=== PATIENT | female | born 2000 | race Two or more races ===

== ENCOUNTER 2022-05-31 10:57 | Observation (INO) | payer MEDICAID ==
[~2022-05-31] VITALS: Ht 163.8 cm; Wt 108.9 kg
[2022-05-31 13:54] LABS: Basophils # (auto) 0 10 ^3/uL (0-0.2); Basophils % (auto) 0.3 % (0.0-2.0); Eosinophils # (auto) 0.1 10 ^3/uL (0-0.8); Eosinophils % (auto) 1.4 % (0.0-7.0); Hematocrit 32.4 % (36.0-46.0); Hemoglobin 10.8 g/dL (12.2-16.2); Lymphocytes # (auto) 1.6 10 ^3/uL (0.4-5.4); Lymphocytes % (auto) 24.1 % (10.0-50.0); Mean Corpuscular Hemoglobin 27.7 pg (28.0-32.0); Mean Corpuscular Hgb Conc. 33.3 g/dL (32.0-36.0); Mean Corpuscular Volume 83.2 fL (80.0-100.0); Monocytes # (auto) 0.4 10 ^3/uL (0-1.3); Monocytes % (auto) 5.8 % (0.0-12.0); Neutrophils # (auto) 4.6 10 ^3/uL (1.6-8.6); Neutrophils % (auto) 68.4 % (37.0-80.0); Red Blood Cells 3.89 10^6/uL (4.0-5.20); Red Cell Distribution Width 14.4 % (11.8-14.3); White Blood Cell 6.7 10^3/uL (4.4-10.8)
[2022-05-31 14:07] LABS: INR 0.93 (0.9-1.15); Partial Thromboplastin Time 32.4 sec (24.6-33.4)
[2022-05-31 14:30] LABS: Albumin 2.4 g/dL (3.4-5.0); BUN/Creatinine Ratio 11.8; Bilirubin, Total 0.2 mg/dL (0.2-1.0); Calcium 8.1 mg/dL (8.5-10.1); Total Protein 6.6 g/dL (6.4-8.2); Uric Acid 3.7 mg/dL (2.6-6.0)
[2022-06-02 08:07] LABS: RPR Non Reactive (Non Reactive)
[2022-06-02 10:06] LABS: Rubella Antibodies, IgG 0.96 index (Immune >0.99)
== END 2022-05-31 14:40 | disposition home or self-care (01) ==
LOC: LDRP 10:57
PROVIDERS: ADMIT Obstetrics & Gynecology; ATTEND Obstetrics & Gynecology
DX: O26.893 Other specified pregnancy related conditions, third trimester (principal); R10.9 Unspecified abdominal pain; R10.2 Pelvic and perineal pain; N89.8 Other specified noninflammatory disorders of vagina; O26.853 Spotting complicating pregnancy, third trimester; Z3A.37 37 weeks gestation of pregnancy; Z79.899 Other long term (current) drug therapy
CPT/HCPCS: 36415; 59025; 76805; 80053; 81002; 84550; 85025; 85610; 85730; 86592; 86703; 86762; 86850; 86900; 86901; 87340; 94760; G0378

== ENCOUNTER 2022-06-21 11:55 | Observation (INO) | payer MEDICAID | END 2022-06-21 15:20 | disposition home or self-care (01) | LOC: LDRP 11:55 | PROVIDERS: ADMIT Obstetrics & Gynecology; ATTEND Obstetrics & Gynecology | DX: O62.9 Abnormality of forces of labor, unspecified (principal); Z3A.40 40 weeks gestation of pregnancy | CPT/HCPCS: 59025; 81002; 94760; G0378 ==

== ENCOUNTER 2022-06-23 21:49 | Inpatient (IN) | payer MEDICAID ==
[~2022-06-23] VITALS: Ht 166.4 cm; Wt 108.9 kg
[2022-06-24 00:53] LABS: Eosinophils # (auto) 0.1 10 ^3/uL (0-0.8); Monocytes # (auto) 0.6 10 ^3/uL (0-1.3); Monocytes % (auto) 4.7 % (0.0-12.0); Neutrophils # (auto) 8.9 10 ^3/uL (1.6-8.6)
[2022-06-24 00:54] LABS: Basophils # (auto) 0 10 ^3/uL (0-0.2); Basophils % (auto) 0.2 % (0.0-2.0); Eosinophils % (auto) 0.5 % (0.0-7.0); Hematocrit 33.3 % (36.0-46.0); Hemoglobin 10.8 g/dL (12.2-16.2); Lymphocytes # (auto) 2.6 10 ^3/uL (0.4-5.4); Lymphocytes % (auto) 21.2 % (10.0-50.0); Mean Corpuscular Hemoglobin 26.5 pg (28.0-32.0); Mean Corpuscular Hgb Conc. 32.4 g/dL (32.0-36.0); Mean Corpuscular Volume 81.7 fL (80.0-100.0); Neutrophils % (auto) 73.4 % (37.0-80.0); Red Blood Cells 4.07 10^6/uL (4.0-5.20); White Blood Cell 12.1 10^3/uL (4.4-10.8)
[2022-06-24 00:59] LABS: Urine Bacteria NONE SEEN /hpf (None Seen); Urine Blood 2+ /uL (Negative); Urine WBC 38 /hpf (0 - 5)
[2022-06-24 01:00] LABS: INR 0.91 (0.9-1.15); Partial Thromboplastin Time 30.2 sec (24.6-33.4)
[2022-06-24 01:02] LABS: Albumin 2.5 g/dL (3.4-5.0); BUN/Creatinine Ratio 12.9; Calcium 8.6 mg/dL (8.5-10.1); Potassium 3.9 mmol/L (3.5-5.1)
[2022-06-24 01:04] LABS: Amphetamine Screen, Urine NEGATIVE (NEGATIVE); Barbiturate Scree,Urine NEGATIVE (NEGATIVE); Benzodiazephine Screen, Urine NEGATIVE (NEGATIVE); Cannabinoid Screen, Urine NEGATIVE (NEGATIVE); Cocaine Screen, Urine NEGATIVE (NEGATIVE); Opiate Scree,Urine NEGATIVE (NEGATIVE); Phencyclidine Screen, Urine NEGATIVE (NEGATIVE)
[2022-06-24 01:05] LABS: Protein, Urine 12.3 mg/dL (0.0-11.9)
[2022-06-24 01:05] LABS: Bilirubin, Total 0.2 mg/dL (0.2-1.0); Total Protein 6.3 g/dL (6.4-8.2)
[2022-06-24 01:59] LABS: Uric Acid 3.6 mg/dL (2.6-6.0)
[2022-06-24] MEDS ORDERED: PROMETHAZINE HCL 25 MG/ML 1ML IV PRN (03:15)
[2022-06-24] MEDS ORDERED: WITCH HAZEL-GLYCERIN PAD TOP PRN (03:15)
[2022-06-24] MEDS ORDERED: PHISODERM TOP SOLN 240ML BTL TOP PRN (03:15)
[2022-06-24] MEDS ORDERED: LIDOCAINE 2%HCL (LOCAL ANESTH.) INJ 20ML MDV IJ PRN (03:15)
[2022-06-24] MEDS ORDERED: PENICILLIN G POT 5MIL/D5 50ML 50 ML IV ONE (03:15)
[2022-06-24] MEDS ORDERED: BUTORPHANOL TARTRATE 2 MG/1 ML VIAL IV PRN ×2 (03:15)
[2022-06-24] MEDS ORDERED: DERMOPLAST 60ML BOTTLE TOP PRN (03:15)
[2022-06-24] MEDS ORDERED: LACTATED RINGER'S 1,000 ML IV SCH (03:15)
[2022-06-24] MEDS ORDERED: LACT. RINGERS/OXYTOCIN 20UNITS 500 ML IV ONE ×2 (04:15→04:45)
[2022-06-24] MEDS ORDERED: miSOPROStol 50 MCG per PRE-CUT 1/2 TAB PO PRN (05:15)
[2022-06-24] MEDS ORDERED: fentaNYL CITRATE 100 MCG/2 ML VL IV ONE ×4 (06:45→15:00)
[2022-06-24] MEDS ORDERED: LIDOCAINE HCL 2 %PF INJ 10ML AMP IJ ONE ×2 (06:45→09:45)
[2022-06-24] MEDS ORDERED: ePHEDrine SULFATE 50 MG/ML AMP IV ONE ×3 (06:45→09:45)
[2022-06-24] MEDS ORDERED: LACTATED RINGER'S 500 ML IV ONE ×2 (06:45→09:45)
[2022-06-24] MEDS ORDERED: NALOXONE HCL 0.4 MG/ML VIAL IV ONE ×3 (06:45→09:45)
[2022-06-24] MEDS ORDERED: ROPIVACAINE HCL 200 ML EPI SCH ×3 (06:45→16:30)
[2022-06-24] MEDS ORDERED: PENICILLIN G POTASSIUM 2,500,000 UNITS in D5W 5% 50 ML IV SCH ×2 (07:15→17:00)
[2022-06-24] MEDS: LACTATED RINGER'S 1,000 ML IV SCH ×2 (08:35→16:10)
[2022-06-24] MEDS: PENICILLIN G POTASSIUM 2,500,000 UNITS in D5W 5% 50 ML IV SCH ×2 (09:25→13:36)
[2022-06-24] MEDS ORDERED: LACT. RINGERS/OXYTOCIN 20UNITS 1,000 ML IV SCH (14:15)
[2022-06-24] MEDS ORDERED: fentaNYL CITRATE 100 MCG/2 ML VL ONE (15:01)
[2022-06-24] MEDS ORDERED: Lidocaine W-Epinephrine 1.5%-1:200,000 INJ 10ml Vial ONE (15:02)
[2022-06-24] MEDS: ceFAZolin 1GM/50ML 50 ML IV SCH ×2 (15:27→22:46)
[2022-06-24] MEDS ORDERED: FAMOTIDINE (10MG/ML) 2ML VL IV PRN (16:00)
[2022-06-24] MEDS ORDERED: MAGNESIUM SULFATE 40MG/ML 1,000 ML IV SCH (17:15)
[2022-06-24] MEDS ORDERED: MAGNESIUM SULFATE 100 ML IV ONE (17:15)
[2022-06-24] MEDS ORDERED: miSOPROStol 100 mcg TAB ONE (18:51)
[2022-06-24] MEDS ORDERED: miSOPROStol 100 mcg TAB PO PRN (19:00)
[2022-06-24 21:00] VITALS: BP 135/66
[2022-06-24 22:00] VITALS: BP 122/57
[2022-06-24] MEDS: IBUPROFEN 600 MG TAB PO PRN (22:46)
[2022-06-24 23:00] VITALS: BP 125/63
[2022-06-25] VITALS (17 sets, daily range): BP systolic 102–136; BP diastolic 53–83
[2022-06-25] MEDS ORDERED: RHO (D) IMMUNE GLOBULIN 300 MCG INJ IM ONE (00:30)
[2022-06-25] MEDS: ACETAMINOPHEN 325 MG TAB PO PRN ×2 (03:13→23:12)
[2022-06-25] MEDS: IBUPROFEN 600 MG TAB PO PRN ×3 (05:48→22:18)
[2022-06-25] MEDS: ceFAZolin 1GM/50ML 50 ML IV SCH ×3 (06:24→22:09)
[2022-06-25] MEDS ORDERED: MEASLES, MUMPS & RUBELLA VAC(MMRII) 0.5ML SC ONE (09:45)
[2022-06-25] MEDS ORDERED: DOCUSATE SOD 100 MG CAP PO ONE (21:20)
[2022-06-25] MEDS ORDERED: DOCUSATE SOD 100 MG CAP PO PRN (21:30)
[2022-06-26 03:00] VITALS: BP 113/58
[2022-06-26] MEDS: ceFAZolin 1GM/50ML 50 ML IV SCH (05:31)
[2022-06-26 07:20] VITALS: BP 122/66
[2022-06-26] MEDS: IBUPROFEN 600 MG TAB PO PRN (08:14)
[2022-06-26 11:10] VITALS: BP 119/71
[2022-06-26] MEDS ORDERED: MEASLES, MUMPS & RUBELLA VAC(MMRII) 0.5ML SC ONE (11:15)
[2022-06-26 13:32] VITALS: BP 119/71
== END 2022-06-26 13:15 | disposition home or self-care (01) | DRG 560 ==
LOC: LDRP 21:49 → OBSVTOIN 06-24 03:02 → LDRP 06-24 08:48
PROVIDERS: ADMIT Obstetrics & Gynecology; ATTEND Obstetrics & Gynecology
PROC: 10E0XZZ Delivery of Products of Conception, External Approach (ICD-10-PCS; principal; 2022-06-24)
PROC: 0KQM0ZZ Repair Perineum Muscle, Open Approach (ICD-10-PCS; 2022-06-24)
PROC: 3E0R3BZ Introduction of Anesthetic Agent into Spinal Canal, Percutaneous Approach (ICD-10-PCS; 2022-06-24)
PROC: 00HU33Z Insertion of Infusion Device into Spinal Canal, Percutaneous Approach (ICD-10-PCS; 2022-06-24)
PROC: 3E0234Z Introduction of Serum, Toxoid and Vaccine into Muscle, Percutaneous Approach (ICD-10-PCS; 2022-06-25)
DX: O48.0 Post-term pregnancy (principal); Z37.0 Single live birth; O99.344 Other mental disorders complicating childbirth; F43.20 Adjustment disorder, unspecified; Z20.822 Contact with and (suspected) exposure to COVID-19; Z3A.40 40 weeks gestation of pregnancy; Z81.8 Family history of other mental and behavioral disorders; O70.1 Second degree perineal laceration during delivery
CPT/HCPCS: 36415; 59025; 59409; 62282; 80053; 80307; 81001; 81002; 82570; 82575; 83735; 84156; 84550; 85025; 85610; 85730; 86850; 86900; 86901; 87426; 90384; 94760; 96360; 96361; 96365; 96366; 96372; G0378; J0690; J2540; J2590; J3490; J7060

== ENCOUNTER 2023-10-11 09:09 | Emergency (ER) | payer MEDICAID ==
[~2023-10-11] VITALS: Ht 165.1 cm; Wt 126.7 kg
[2023-10-11 09:30] VITALS: TEMP 98.7
[2023-10-11 09:49] VITALS: BP 101/70; PULSE 76; RESP 12; O2SAT 99
[2023-10-11] MEDS: KETOROLAC TROMETH 60MG/2ML VIAL IM ONE (11:57)
[2023-10-11] MEDS ORDERED: IBUP-1454 PO (12:48)
== END 2023-10-11 13:23 | disposition home or self-care (01) ==
LOC: ER 09:09
DX: S93.402A Sprain of unspecified ligament of left ankle, initial encounter (principal); W10.8XXA Fall (on) (from) other stairs and steps, initial encounter; Y93.89 Activity, other specified; Y92.89 Other specified places as the place of occurrence of the external cause; Y99.8 Other external cause status
CPT/HCPCS: 73610; 96372; 99283; J1885

== ENCOUNTER 2024-05-19 18:31 | Emergency (ER) | payer MEDICAID ==
[~2024-05-19] VITALS: Ht 166.4 cm; Wt 89.4 kg
[~2024-05-19 18:31] MED LIST: IBUP-1454 PO
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
[2024-05-19] MEDS: ACETAMINOPHEN 325 MG TAB PO ONE (20:14)
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
[2024-05-19 23:18] VITALS: BP 111/64; PULSE 77; RESP 16; TEMP 98.3; O2SAT 97
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
== END 2024-05-19 23:22 | disposition home or self-care (01) ==
LOC: ER 18:31
DX: O26.892 Other specified pregnancy related conditions, second trimester (principal); M79.632 Pain in left forearm; M25.521 Pain in right elbow; M25.571 Pain in right ankle and joints of right foot; Z3A.14 14 weeks gestation of pregnancy; V03.931A Pedestrian on standing electric scooter injured in collision with car, pick-up or van, unspecified whether traffic or nontraffic accident, initial encounter; Y93.I9 Activity, other involving external motion; Y92.488 Other paved roadways as the place of occurrence of the external cause; Y99.8 Other external cause status
CPT/HCPCS: 73070; 73610; 76805; 76817

== ENCOUNTER 2024-11-16 19:09 | Observation (INO) | payer MEDICAID ==
[2024-11-16 20:01] LABS: Urine Bacteria FEW /hpf (None Seen); Urine Blood Negative /uL (Negative); Urine Clarity Turbid (Clear); Urine Color Yellow (Yellow); Urine Mucus FEW (None Seen); Urine Protein, UAD TRACE (Negative); Urine Specific Gravity 1.026 (1.001-1.035); Urine Squamous Epithelial Cell MOD /hpf (<5); Urine Urobilinogen Normal (Negative); Urine WBC 40 /HPF (0-5)
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
[2024-11-16] MEDS ORDERED: PREN27TA7 OR (20:35)
--- NOTE | 2024-11-16 21:06 | DVHDS2 ---
Physician Discharge Progress N Final Diagnosis: IUP @ 40w 1d Pelvic Pain - Resolved Operations or Procedures: Operations or Procedures G2,1001 presents to L&D, reports EDC 11/15/24, pelvic pain and SOB that started 3hours ago. She reports both resolved by the time she gets to hospital Reports normal movements, no leakage of fluid or vaginal bleeding, no BARTON, vision changes or epigastric pain States she reports care in [place], planned delivery hospital is [facility] in [place] Per pt pain is mild and she actually wants her labor to be induced. States she was not very consistent with her OB appointments. States she went to [facility] 3x, was told she has polyhydramnios but didn't really go back She reports h/o preeclampsia with first and current O: VSS. BP in normal range, O2 sat 95-97% in room air A&O x3, not in acute distress. Appears comfortable, respiration unlabored, no SOB noted No CVA tenderness Abdomen palpate soft No pedal edema, DTR +2/+2 EFM Tracing Reviewed FHR baseline 120bpm with moderate variability and acceleration, no deceleration Very Irregular mild UC, none felt by pt Limited OB US Cephalic Presentation, Placenta Anterior, LALY 15.7cm A: IUP at 40w 1d NST: reactive P: Discussed with patient; unable to proceed with IOL as records not available No indication for IOL noted on her assessment Patient then states she wants to be discharged and will go to [facility] for her labor to be induced Discharge Home 3rd trimester emergency [facility], labor & pre-eclampsia precautions reviewed with pt; advised to seek health care if any Condition on Discharge: Good Disposition: Home Discharge Instructions: Diet: Regular Activity: No Restrictions, As Tolerated Follow Up/Referral: FOLLOW UP WITH PRIMARY OB. GO TO YOUR NEAREST HOSPITAL INCASE OF LABOR SIGNS OR INCASE OF EMERGENCY. Medications: CONTINUE TAKING ALL CURRENT MEDICATIONS PREVIOUSLY PRESCRIBED BY DR LAZO. Follow Up Care: Discharge Statement: "Patient was advised to return to the ER or call 911 if any headaches, dizziness, shortness of breath, chest pain, abdominal pain, bleeding, fevers, or worsening of medical condition. Patient was counseled about treatment plan, medications, possible side effects, patient�verbalized understanding. All questions were answered to the best of my ability. This discharge took greater then 30 minutes in planning, reviewing documentation, counseling the patient, and discussing with other team members." Visit Coding OBGYN Date of Service: November 16, 2024 Billing Provider: YAS PORTILLO CNM COMPUTER INFORMATION SYSTEMS INSTRUCTOR Common Visit Codes: 51117-YXD/OBS SAME DATE (HIGH) COMPUTER INFORMATION SYSTEMS INSTRUCTOR Procedure Codes: 06532-87- NON-STRESS TEST YAS PORTILLO CNM November 16, 2024 21:06
== END 2024-11-16 20:48 | disposition home or self-care (01) ==
LOC: LDRP 19:09
PROVIDERS: ADMIT Obstetrics & Gynecology; ATTEND Obstetrics & Gynecology
DX: O40.3XX0 Polyhydramnios, third trimester, not applicable or unspecified (principal); O99.513 Diseases of the respiratory system complicating pregnancy, third trimester; R06.02 Shortness of breath; O26.893 Other specified pregnancy related conditions, third trimester; R10.2 Pelvic and perineal pain; M54.59 Other low back pain; R11.0 Nausea; Z3A.40 40 weeks gestation of pregnancy; Z79.899 Other long term (current) drug therapy
CPT/HCPCS: 59025; 76815; 81001; 81002; 94760; G0378